=== PATIENT | female | born 1960 | race Two or more races ===

== ENCOUNTER 2021-07-01 08:12 | Inpatient (IN) | payer OTHER ==
[~2021-07-01] VITALS: Ht 152.4 cm; Wt 66.0 kg
[2021-07-01] MEDS ORDERED: MORPHINE SULFATE 4 MG/ML SYR/VIAL IV ONE (08:30)
[2021-07-01] MEDS ORDERED: ONDANSETRON HCL 4 MG/2 ML VIAL IV ONE (08:30)
[2021-07-01] MEDS ORDERED: NITROGLYCERIN 0.4 MG SL TAB SL PRN (09:30)
[2021-07-01] MEDS ORDERED: PROMETHAZINE HCL 25 MG/ML 1ML IV PRN (09:30)
[2021-07-01] MEDS ORDERED: MORPHINE SULFATE INJECTION 2 MG/ML SYRG IV PRN ×3 (09:30)
[2021-07-01 09:35] LABS: Basophils # (auto) 0 10 ^3/uL (0-0.2); Basophils % (auto) 0.9 % (0.0-2.0); Eosinophils # (auto) 0.2 10 ^3/uL (0-0.8); Eosinophils % (auto) 3.7 % (0.0-7.0); Hemoglobin 13.7 g/dL (12.2-16.2); Lymphocytes # (auto) 1.6 10 ^3/uL (0.4-5.4); Lymphocytes % (auto) 32.1 % (10.0-50.0); Mean Corpuscular Hemoglobin 31.2 pg (28.0-32.0); Mean Corpuscular Hgb Conc. 33.3 g/dL (32.0-36.0); Mean Corpuscular Volume 93.7 fL (80.0-100.0); Monocytes # (auto) 0.5 10 ^3/uL (0-1.3); Monocytes % (auto) 9.9 % (0.0-12.0); Neutrophils # (auto) 2.6 10 ^3/uL (1.6-8.6); Neutrophils % (auto) 53.4 % (37.0-80.0); Nucleated Red Blood Cells % 0.1 %; Red Blood Cells 4.38 10^6/uL (4.0-5.20); Red Cell Distribution Width 12.8 % (11.8-14.3); White Blood Cell 4.9 10^3/uL (4.4-10.8)
[2021-07-01] MEDS ORDERED: HYDROmorphone HCL 2 MG/ML VL ONE (09:42)
[2021-07-01 09:46] LABS: Albumin 3.7 g/dL (3.4-5.0); Calcium 8.9 mg/dL (8.5-10.1)
[2021-07-01 09:50] LABS: BUN/Creatinine Ratio 18.1; Bilirubin, Total 0.3 mg/dL (0.2-1.0); Total Protein 7.3 g/dL (6.4-8.2)
[2021-07-01 09:53] LABS: INR 1.07 (0.9-1.15); Partial Thromboplastin Time 27.5 sec (23.6-33.0)
[2021-07-01] MEDS: SODIUM CHLORIDE 0.9% 1,000 ML IV SCH ×3 (09:58→20:30)
[2021-07-01] MEDS ORDERED: HYDROmorphone HCL 2 MG/ML VL IV ONE (10:00)
[2021-07-01] MEDS: MORPHINE SULFATE INJECTION 2 MG/ML SYRG IV PRN (18:37)
[2021-07-02] MEDS: MORPHINE SULFATE INJECTION 2 MG/ML SYRG IV PRN ×4 (00:46→21:52)
[2021-07-02] MEDS: SODIUM CHLORIDE 0.9% 1,000 ML IV SCH ×2 (05:50→15:30)
[2021-07-02] MEDS ORDERED: KETOROLAC TROMETH 30 MG/ML 1ML VIAL IV ONE (06:00)
[2021-07-02] MEDS ORDERED: ceFAZolin 1GM/50ML 100 ML IV ONE (12:27)
[2021-07-02] MEDS ORDERED: fentaNYL CITRATE 5 ML ONE (12:39)
[2021-07-02] MEDS ORDERED: MIDAZOLAM HCL 2MG/2ML 2ml VIAL (1mg/ml) ONE (12:40)
[2021-07-02] MEDS ORDERED: LIDOCAINE 2% (LOCAL ANESTH.) PF 5ml SDV ONE (12:41)
[2021-07-02] MEDS ORDERED: PROPOFOL 10 MG/ML 20 ML IV ONE (12:42)
[2021-07-02] MEDS ORDERED: GLYCOPYRROLATE 0.2 MG/ML 1ML VIAL ONE (14:50)
[2021-07-02] MEDS ORDERED: HYDROmorphone HCL 2 MG/ML VL IV PRN ×2 (15:15)
[2021-07-02] MEDS ORDERED: ONDANSETRON HCL 4 MG/2 ML VIAL IV PRN (15:15)
[2021-07-02 16:36] VITALS: BP 97/65
[2021-07-02] MEDS: KETOROLAC TROMETH 30 MG/ML 1ML VIAL IV SCH (18:27)
[2021-07-02 22:00] VITALS: BP 122/64
[2021-07-03] MEDS: KETOROLAC TROMETH 30 MG/ML 1ML VIAL IV SCH ×5 (00:34→23:46)
[2021-07-03] MEDS: SODIUM CHLORIDE 0.9% 1,000 ML IV SCH ×3 (01:30→21:30)
[2021-07-03 05:00] VITALS: BP 108/62
[2021-07-03 05:17] LABS: Basophils # (auto) 0 10 ^3/uL (0-0.2); Basophils % (auto) 0.4 % (0.0-2.0); Eosinophils # (auto) 0.2 10 ^3/uL (0-0.8); Eosinophils % (auto) 2.4 % (0.0-7.0); Hemoglobin 11.7 g/dL (12.2-16.2); Lymphocytes % (auto) 23.1 % (10.0-50.0); Mean Corpuscular Hemoglobin 31.4 pg (28.0-32.0); Mean Corpuscular Hgb Conc. 33.3 g/dL (32.0-36.0); Mean Corpuscular Volume 94.2 fL (80.0-100.0); Monocytes # (auto) 1.2 10 ^3/uL (0-1.3); Monocytes % (auto) 13.5 % (0.0-12.0); Neutrophils # (auto) 5.3 10 ^3/uL (1.6-8.6); Neutrophils % (auto) 60.6 % (37.0-80.0); Nucleated Red Blood Cells % 0.1 %; Red Blood Cells 3.72 10^6/uL (4.0-5.20); Red Cell Distribution Width 12.5 % (11.8-14.3); White Blood Cell 8.7 10^3/uL (4.4-10.8)
[2021-07-03 05:32] LABS: Albumin 2.8 g/dL (3.4-5.0); Calcium 8.1 mg/dL (8.5-10.1); Potassium 4.1 mmol/L (3.5-5.1)
[2021-07-03 05:35] LABS: Bilirubin, Total 0.5 mg/dL (0.2-1.0)
[2021-07-03] MEDS: MORPHINE SULFATE INJECTION 2 MG/ML SYRG IV PRN (07:28)
[2021-07-03 09:00] VITALS: BP 110/62
[2021-07-03] MEDS: HYDROcodone-ACET 10/325MG TAB PO PRN ×2 (10:59→17:17)
[2021-07-03] MEDS: Ensure HIGH Protein Chocolate 8oz Bottle PO SCH ×2 (12:00→18:12)
[2021-07-03 13:00] VITALS: BP 98/62
[2021-07-03] MEDS: LACTULOSE 20Gm/30ML SOLN PO PRN (15:09)
[2021-07-03 17:00] VITALS: BP 101/60
[2021-07-03 22:00] VITALS: BP 108/67
[2021-07-04 05:00] VITALS: BP 115/71
[2021-07-04 05:04] LABS: Basophils # (auto) 0.1 10 ^3/uL (0-0.2); Eosinophils # (auto) 0.3 10 ^3/uL (0-0.8); Eosinophils % (auto) 3.9 % (0.0-7.0); Hematocrit 34.2 % (36.0-46.0); Hemoglobin 11.7 g/dL (12.2-16.2); Lymphocytes # (auto) 2.4 10 ^3/uL (0.4-5.4); Lymphocytes % (auto) 32.6 % (10.0-50.0); Mean Corpuscular Hemoglobin 32.5 pg (28.0-32.0); Mean Corpuscular Hgb Conc. 34.3 g/dL (32.0-36.0); Mean Corpuscular Volume 94.6 fL (80.0-100.0); Monocytes # (auto) 0.7 10 ^3/uL (0-1.3); Monocytes % (auto) 9.2 % (0.0-12.0); Neutrophils % (auto) 53.3 % (37.0-80.0); Nucleated Red Blood Cells % 0.2 %; Red Blood Cells 3.61 10^6/uL (4.0-5.20); Red Cell Distribution Width 12.3 % (11.8-14.3); White Blood Cell 7.5 10^3/uL (4.4-10.8)
[2021-07-04 05:32] LABS: Calcium 8.3 mg/dL (8.5-10.1); Potassium 4.2 mmol/L (3.5-5.1)
[2021-07-04 05:36] LABS: BUN/Creatinine Ratio 7.7
[2021-07-04] MEDS: KETOROLAC TROMETH 30 MG/ML 1ML VIAL IV SCH ×3 (06:06→18:14)
[2021-07-04] MEDS: Ensure HIGH Protein Chocolate 8oz Bottle PO SCH ×3 (08:10→18:14)
[2021-07-04] MEDS: MORPHINE SULFATE INJECTION 2 MG/ML SYRG IV PRN (08:16)
[2021-07-04] MEDS: SODIUM CHLORIDE 0.9% 1,000 ML IV SCH ×3 (08:16→23:00)
[2021-07-04 09:00] VITALS: BP 117/64
[2021-07-04 12:27] LABS: Urine WBC None Seen /hpf (0 - 5)
[2021-07-04 12:36] LABS: Urine Bacteria NONE SEEN /hpf (None Seen); Urine Blood Negative /uL (Negative); Urine Specific Gravity 1.004 (1.001-1.035)
[2021-07-04 13:00] VITALS: BP 120/68
[2021-07-04] MEDS: HYDROcodone-ACET 10/325MG TAB PO PRN ×2 (15:02→22:40)
[2021-07-04 16:53] VITALS: BP_SYST 109; BP_SYST 124; BP_DIAS 64; BP_DIAS 69
[2021-07-04] MEDS: LACTULOSE 20Gm/30ML SOLN PO PRN (18:44)
[2021-07-04 22:00] VITALS: BP 124/73
[2021-07-05] MEDS: KETOROLAC TROMETH 30 MG/ML 1ML VIAL IV SCH ×2 (00:30→05:56)
[2021-07-05 05:00] VITALS: BP 102/63
[2021-07-05 07:29] LABS: Basophils # (auto) 0.1 10 ^3/uL (0-0.2); Basophils % (auto) 0.9 % (0.0-2.0); Eosinophils # (auto) 0.5 10 ^3/uL (0-0.8); Eosinophils % (auto) 7.5 % (0.0-7.0); Hematocrit 34.3 % (36.0-46.0); Hemoglobin 11.6 g/dL (12.2-16.2); Lymphocytes # (auto) 2.5 10 ^3/uL (0.4-5.4); Lymphocytes % (auto) 37.7 % (10.0-50.0); Mean Corpuscular Hemoglobin 31.7 pg (28.0-32.0); Mean Corpuscular Hgb Conc. 33.8 g/dL (32.0-36.0); Mean Corpuscular Volume 93.8 fL (80.0-100.0); Monocytes # (auto) 0.7 10 ^3/uL (0-1.3); Monocytes % (auto) 10.9 % (0.0-12.0); Neutrophils # (auto) 2.8 10 ^3/uL (1.6-8.6); Nucleated Red Blood Cells % 0.1 %; Red Blood Cells 3.66 10^6/uL (4.0-5.20); Red Cell Distribution Width 12.7 % (11.8-14.3); White Blood Cell 6.6 10^3/uL (4.4-10.8)
[2021-07-05 07:43] LABS: BUN/Creatinine Ratio 7.1; Calcium 7.9 mg/dL (8.5-10.1); Potassium 3.9 mmol/L (3.5-5.1)
[2021-07-05 09:00] VITALS: BP 134/75
[2021-07-05] MEDS: HYDROcodone-ACET 10/325MG TAB PO PRN ×2 (10:25→17:11)
[2021-07-05] MEDS: Ensure HIGH Protein Chocolate 8oz Bottle PO SCH ×3 (10:26→18:25)
[2021-07-05] MEDS ORDERED: IBUP600T27 PO (10:59)
[2021-07-05] MEDS ORDERED: FAMO20TA10 PO (10:59)
[2021-07-05] MEDS ORDERED: KETOROLAC TROMETH 30 MG/ML 1ML VIAL IV ONE (11:00)
[2021-07-05] MEDS ORDERED: MORPHINE SULFATE INJECTION 2 MG/ML SYRG IV PRN (11:15)
[2021-07-05 13:00] VITALS: BP 145/83
[2021-07-05 17:00] VITALS: BP 138/71
[2021-07-05 20:00] VITALS: BP 132/79
[2021-07-05 22:00] VITALS: BP 132/79
[2021-07-06 04:00] VITALS: BP 143/91
[2021-07-06] MEDS: Ensure HIGH Protein Chocolate 8oz Bottle PO SCH ×2 (08:00→12:00)
[2021-07-06] MEDS: HYDROcodone-ACET 10/325MG TAB PO PRN (08:25)
[2021-07-06 09:00] VITALS: BP 137/82
== END 2021-07-06 15:30 | disposition home or self-care (01) | DRG 313 ==
LOC: ER 08:12 → EDBD 08:12 → TELE 09:27 → WEST WING 07-02 12:03 → TELE-CENTR 07-02 16:17 → CENTRAL 07-02 19:57 → WEST WING 07-05 00:35
PROVIDERS: ADMIT Internal Medicine; ATTEND Internal Medicine
PROC: 0QSJ04Z Reposition Right Fibula with Internal Fixation Device, Open Approach (ICD-10-PCS; principal; 2021-07-02 13:12)
DX: S82.851A Displaced trimalleolar fracture of right lower leg, initial encounter for closed fracture (principal); E66.9 Obesity, unspecified; Z20.822 Contact with and (suspected) exposure to COVID-19; M19.90 Unspecified osteoarthritis, unspecified site; E78.5 Hyperlipidemia, unspecified; W18.39XA Other fall on same level, initial encounter; J98.11 Atelectasis; Z82.49 Family history of ischemic heart disease and other diseases of the circulatory system; Z98.82 Breast implant status; Z90.49 Acquired absence of other specified parts of digestive tract; Y93.89 Activity, other specified; Y92.89 Other specified places as the place of occurrence of the external cause; Y99.8 Other external cause status; Z68.28 Body mass index [BMI] 28.0-28.9, adult; Z79.899 Other long term (current) drug therapy; Z98.51 Tubal ligation status
CPT/HCPCS: 27818; 36415; 51702; 71045; 73600; 76000; 80048; 80053; 81001; 84443; 85025; 85610; 85730; 86850; 86900; 86901; 87086; 87426; 93005; 96374; 96375; 97116; 97530; G0378; J0690; J1885; J2001; J2250; J2405; J2704